=== PATIENT | male | born 1960 | race Two or more races ===

== ENCOUNTER 2023-02-15 16:31 | Emergency (ER) | payer BC, MEDICAID ==
[~2023-02-15] VITALS: Ht 165.1 cm; Wt 90.9 kg
[2023-02-15 17:30] VITALS: BP 154/80; PULSE 76; PULSE 93; RESP 18; TEMP 99.5; O2SAT 95; O2SAT 99
[2023-02-15] MEDS ORDERED: ACET500T58 PO (17:32)
[2023-02-15] MEDS ORDERED: CEPH500C PO (17:32)
[2023-02-15] MEDS ORDERED: IBUP-1455 PO (17:32)
== END 2023-02-15 17:57 | disposition home or self-care (01) ==
LOC: ER 16:31
DX: S01.511A Laceration without foreign body of lip, initial encounter (principal); X58.XXXA Exposure to other specified factors, initial encounter; Y93.89 Activity, other specified; Y92.89 Other specified places as the place of occurrence of the external cause; Y99.8 Other external cause status
CPT/HCPCS: 12011